=== PATIENT | male | born 1950 | race African-American/Black ===

== ENCOUNTER 2019-08-09 14:25 | Emergency (ER) | payer MEDICAID, MEDICARE ==
[~2019-08-09] VITALS: Ht 195.6 cm; Wt 90.7 kg
[2019-08-09 14:40] VITALS: BP 105/73
--- NOTE | 2019-08-09 14:40 | NUR ---
ED Nurse Note: PT FROM HOME AND WALKED IN DUE TO PRODUCTIVE COUGHING AND SOB X 2 WEEKS. STATES DIFFICULTY WHEN LAYING FLAT. DENIES NIGHT SWEATS. AAO X4, AMBULATORY WITH NOTED SOB AT REST. LUNGS TIGHT UPON AUSCULTATION.
--- NOTE | 2019-08-09 15:00 | NUR ---
ED Nurse Note: RT on bedside. Established IV site on RT AC with 20G, obtained blood specimen, sent to labs. Maintained pt on high fowlers, VSS, no signs of any respiratory distress. Will continue to monitor.
[2019-08-09] MEDS: Ipratropium 0.02% Inh Soln 2.5ml UD HHN SCH (15:09)
[2019-08-09] MEDS: Albuterol ud Inhalation HHN SCH (15:09)
[2019-08-09 15:34] LABS: BASOPHILS % (AUTO) 1.3 % (0.0-2.0); EOSINOPHILS % (AUTO) 1.9 % (0.0-3.0); HEMATOCRIT 40.4 % (42.0-52.0); HEMOGLOBIN 13.3 G/DL (14.2-18.0); LYMPHOCYTES % (AUTO) 31.6 % (20.0-45.0); MEAN CORPUSCULAR VOLUME 89 FL (80-99); MONOCYTES % (AUTO) 12.1 % (1.0-10.0); NEUTROPHILS % (AUTO) 53.1 % (45.0-75.0); PLATELET COUNT 198 K/UL (150-450); RED BLOOD COUNT 4.54 M/UL (4.70-6.10); RED CELL DISTRIBUTION WIDTH 13.3 % (11.6-14.8); WHITE BLOOD COUNT 5.2 K/UL (4.8-10.8)
[2019-08-09 15:54] LABS: ANION GAP 5 mmol/L (5-15); BLOOD UREA NITROGEN 11 mg/dL (7-18); CALCIUM 9.8 MG/DL (8.5-10.1); CARBON DIOXIDE 29 MMOL/L (21-32); CHLORIDE 102 MMOL/L (98-107); CREATININE 0.9 MG/DL (0.55-1.30); POTASSIUM 3.8 MMOL/L (3.5-5.1); SODIUM 136 MMOL/L (136-145)
[2019-08-09 16:05] LABS: ALANINE AMINOTRANSFERASE 14 U/L (12-78); ALBUMIN 3.3 G/DL (3.4-5.0); ALBUMIN/GLOBULIN RATIO 0.7 (1.0-2.7); ALKALINE PHOSPHATASE 68 U/L (46-116); ASPARTATE AMINO TRANSFERASE 29 U/L (15-37); BILIRUBIN,TOTAL 0.6 MG/DL (0.2-1.0)
[2019-08-09 16:29] VITALS: BP 122/65
--- NOTE | 2019-08-09 16:40 | NUR ---
ED Nurse Note: ERMD on bedside.
[2019-08-09 16:44] LABS: APPEARANCE,URINE CLEAR; BILIRUBIN, URINE NEGATIVE (NEGATIVE); COLOR,URINE YELLOW; GLUCOSE, URINE (UA) NEGATIVE (NEGATIVE); KETONES,URINE NEGATIVE (NEGATIVE); LEUKOCYTE ESTERASE ,URINE NEGATIVE (NEGATIVE); NITRITE,URINE NEGATIVE (NEGATIVE); PH,URINE 5 (4.5-8.0); PROTEIN,URINE 1+ (NEGATIVE); UROBILINOGEN,URINE NORMAL MG/DL (0.0-1.0)
[2019-08-09] MEDS ORDERED: Omnipaue 350mg/ml 100ml vial INJ PRN (17:00)
--- NOTE | 2019-08-09 17:01 | Diagnostic Imaging Report ---
Indication: Chest pain, shortness of breath Technique: XRAY Chest 1v Comparison: None Findings: There is abnormal prominence of upper mediastinum which is concerning for aneurysmal dilatation of the thoracic aorta, mass and/or lymphadenopathy. Recommend further evaluation with CT of the chest with contrast. There are patchy opacities in the bilateral bases and a small left pleural effusion. No evidence of pneumothorax. Degenerative changes noted in the spine. No acute osseous abnormality. Impression: * Abnormal prominence/widening of upper mediastinum which is concerning for aneurysmal dilatation of the thoracic aorta, mass and/or lymphadenopathy. Recommend further evaluation with CT of the chest with contrast, especially if there is clinical concern for acute aortic pathology. * Small left pleural effusion and patchy bibasilar airspace opacities which may related to subsegmental atelectasis. Pneumonia needs to be excluded clinically.
--- NOTE | 2019-08-09 17:04 | NUR ---
ED Nurse Note: Pt went for CT via wheelchair.
--- NOTE | 2019-08-09 17:20 | NUR ---
ED Nurse Note: Pt returned from CT via wheelchair on stable condition.
[2019-08-09] MEDS ORDERED: PREDNISONE20 MG ORAL (18:18)
[2019-08-09] MEDS ORDERED: COMP-AIR NEBUL1 EACH MC (18:18)
[2019-08-09] MEDS ORDERED: ALBUTEROL2.5 MG/3 M HHN (18:18)
[2019-08-09] MEDS ORDERED: PROMETHAZINE-C118 M1 ORAL (18:18)
[2019-08-09] MEDS ORDERED: AMOXICILLIN500 MG ORAL (18:18)
[2019-08-09] MEDS ORDERED: ALBUTEROL SULF8.5 GM INH (18:18)
--- NOTE | 2019-08-09 18:21 | NUR ---
ED Nurse Note: Pt's HR goes between 45-48 bpm, ERMD aware with no new orders given at this time.
[2019-08-09 18:22] VITALS: BP 104/57
[2019-08-09 18:35] VITALS: BP 92/75
--- NOTE | 2019-08-09 18:35 | NUR ---
ER DISCHARGE NOTE: Pt. is cleared to be discharged per ERMD, pt is aox4, on room air, with stable vital signs. pt was given dc and prescription instructions, pt was able to verbalize understanding, pt id band and iv site removed without complications. pt is able to ambulate with steady gait. pt took all belongings, pt left ED with family member.
--- NOTE | 2019-08-09 18:37 | Emergency Room Report ---
History of Present Illness General Chief Complaint: Dyspnea/Respdistress Source: Patient Present Illness HPI 69-year-old male presents ED for evaluation. Complaining of shortness of breath. States he is got a dry cough for the last 2 weeks. States he feels short of breath. Denies fevers or chills. Denies chest pain. States he smokes every day. Smokes 3 cigarettes today. Denies sick contacts or recent travel. No other aggravating relieving factors. Denies any other associated symptoms Allergies: Coded Allergies: No Known Allergies (Unverified , 08/09/19) Patient History Past Medical History: COPD Past Surgical History: none Pertinent Family History: none Social History: Reports: smoking; Denies: alcohol use, drug use Immunizations: UTD Reviewed Nursing Documentation: PMH: Agreed; PSxH: Agreed Nursing Documentation-PMH Hx Cardiac Problems: No - HIV positive Review of Systems All Other Systems: negative except mentioned in HPI Physical Exam Vital Signs Date Time Temp Pulse Resp B/P (MAP) Pulse Ox O2 Delivery O2 Flow Rate FiO2 08/09/19 14:30 97.9 107 24 98/70 (79) 96 Room Air 08/09/19 15:07 21 Sp02 EP Interpretation: reviewed, normal General Appearance: no apparent distress, alert, GCS 15, non-toxic Head: normocephalic, atraumatic Eyes: bilateral eye normal inspection, bilateral eye PERRL ENT: hearing grossly normal, normal pharynx, no angioedema, normal voice Neck: full range of motion, supple/symm/no masses Respiratory: chest non-tender, decreased breath sounds, speaking full sentences , wheezing Cardiovascular #1: no edema, tachycardia Cardiovascular #2: 2+ carotid (R), 2+ carotid (L), 2+ radial (R), 2+ radial (L) , 2+ dorsalis pedis (R), 2+ dorsalis pedis (L) Gastrointestinal: normal bowel sounds, non tender, soft, non-distended, no guarding, no rebound Rectal: deferred Genitourinary: normal inspection, no CVA tenderness Musculoskeletal: back normal, normal range of motion, gait/station normal, non- tender Neurologic: alert, motor strength/tone normal, oriented x3, sensory intact, responsive, speech normal Psychiatric: judgement/insight normal, memory normal, mood/affect normal, no suicidal/homicidal ideation Reflexes: 3+ bicep (R), 3+ bicep (L), 3+ tricep (R), 3+ tricep (L), 3+ knee (R) , 3+ knee (L) Skin: no rash Lymphatic: no adenopathy Medical Decision Making Diagnostic Impression: Primary Impression: Lung mass Additional Impression: COPD (chronic obstructive pulmonary disease) Qualified Codes: J44.9 - Chronic obstructive pulmonary disease, unspecified ER Course Hospital Course 69 yo M presents to ED c/o sob, cough x 2 weeks Differential diagnoses include: URI, bronchitis, asthma/COPD, pneumonia Clinical course Patient placed on stretcher. After initial history, physical exam reveals an elderly male in no acute distress. Bilateral TM unremarkable. No pharyngeal erythema. No tonsillar exudates. No lymphadenopathy. lungs clear. I ordered labs, IV fluids, nebs, chest x-ray. Labs reviewed- no leukocytosis, hemoglobin/hematocrit stable, electrolytes okay , trop negative EKG - sinus tachycardia no acute ichemic changes interpreted by me Chest x-ray shows widened mediastinum. concerning for aneurysm versus mass CTA ordered CTA shows numerous nodular masses within the superior and anterior mediastinum concerning for mery metastatic disease no signs of dissection or aneurysm I discussed these findings with the patient. Given history of smoking there is concern for lung cancer. Patient and at bedside understand. Patient states he is feeling better. Will discharge to home with prescription for an inhaler, steroids, cough medication, antibiotics. Given copy of CT report. Patient states he will follow-up with his PMD. States he is currently scheduled to see a behavioral services tech. I will also provide pulmonary referrals. Diagnosis - lung mass, COPD Stable and discharged home with prescriptions for albuterol, prednisone, promethazine, amoxicillin. Instructed to followup with PMD. Return to ED if symptoms recur or worsen Labs Test 08/09/19 14:55 08/09/19 16:00 White Blood Count 5.2 K/UL (4.8-10.8) Red Blood Count 4.54 M/UL (4.70-6.10) Hemoglobin 13.3 G/DL (14.2-18.0) Hematocrit 40.4 % (42.0-52.0) Mean Corpuscular Volume 89 FL (80-99) Mean Corpuscular Hemoglobin 29.2 PG (27.0-31.0) Mean Corpuscular Hemoglobin Concent 32.9 G/DL (32.0-36.0) Red Cell Distribution Width 13.3 % (11.6-14.8) Platelet Count 198 K/UL (150-450) Mean Platelet Volume 5.3 FL (6.5-10.1) Neutrophils (%) (Auto) 53.1 % (45.0-75.0) Lymphocytes (%) (Auto) 31.6 % (20.0-45.0) Monocytes (%) (Auto) 12.1 % (1.0-10.0) Eosinophils (%) (Auto) 1.9 % (0.0-3.0) Basophils (%) (Auto) 1.3 % (0.0-2.0) Sodium Level 136 MMOL/L (136-145) Potassium Level 3.8 MMOL/L (3.5-5.1) Chloride Level 102 MMOL/L (98-107) Carbon Dioxide Level 29 MMOL/L (21-32) Anion Gap 5 mmol/L (5-15) Blood Urea Nitrogen 11 mg/dL (7-18) Creatinine 0.9 MG/DL (0.55-1.30) Estimat Glomerular Filtration Rate mL/min (>60) Glucose Level 82 MG/DL (74-106) Calcium Level 9.8 MG/DL (8.5-10.1) Total Bilirubin 0.6 MG/DL (0.2-1.0) Aspartate Amino Transf (AST/SGOT) 29 U/L (15-37) Alanine Aminotransferase (ALT/SGPT) 14 U/L (12-78) Alkaline Phosphatase 68 U/L (46-116) Troponin I 0.000 ng/mL (0.000-0.056) Pro-B-Type Natriuretic Peptide 134 pg/mL (0-125) Total Protein 8.0 G/DL (6.4-8.2) Albumin 3.3 G/DL (3.4-5.0) Globulin 4.7 g/dL Albumin/Globulin Ratio 0.7 (1.0-2.7) Urine Color Yellow Urine Appearance Clear Urine pH 5 (4.5-8.0) Urine Specific [place] 1.010 (1.005-1.035) Urine Protein 1+ (NEGATIVE) Urine Glucose (UA) Negative (NEGATIVE) Urine Ketones Negative (NEGATIVE) Urine Blood Negative (NEGATIVE) Urine Nitrite Negative (NEGATIVE) Urine Bilirubin Negative (NEGATIVE) Urine Urobilinogen Normal MG/DL (0.0-1.0) Urine Leukocyte Esterase Negative (NEGATIVE) Urine RBC 0-2 /HPF (0 - 0) Urine WBC 0-2 /HPF (0 - 0) Urine Squamous Epithelial Cells Few /LPF (NONE/OCC) Urine Bacteria Occasional /HPF (NONE) EKG Diagnostic Results Rate: tachycardiac Rhythm: NSR ST Segments: no acute changes ASA given to the pt in ED: No Rhythm Strip Diag. Results EP Interpretation: yes Rhythm: NSR, no PVC's, no ectopy Chest X-Ray Diagnostic Results Chest X-Ray Diagnostic Results : Chest X-Ray Ordered: Yes # of Views/Limited/Complete: 1 View Indication: Shortness of Breath EP Interpretation: Yes Interpretation: no consolidation, no pneumothorax, other - widened mediastinum Impression: Other - widened mediastinum Electronically Signed by: Electronically signed by Dylan Restrepo MD CT/MRI/US Diagnostic Results CT/MRI/US Diagnostic Results : Imaging Test Ordered: CTA Chest Impression Enlarged thyroid gland suggesting goiter. Numerous enlarged low-density nodular masses within the superior and anterior mediastinum are concerning for mery metastatic disease, a lymphoproliferative process and less likely reactive process due to infection. These masses insinuate the large vessels of the mediastinum and bronchi. No evidence of pulmonary embolus. No thoracic aortic dissection or aneurysm. Small to moderate left pleural effusion with adjacent atelectasis. Centrilobular and paraseptal emphysema. Heart and pericardium unremarkable. Upper abdomen is unremarkable. No acute osseous abnormality. Last Vital Signs Date Time Temp Pulse Resp B/P (MAP) Pulse Ox O2 Delivery O2 Flow Rate FiO2 08/09/19 16:29 98.5 117 37 122/65 99 Room Air 08/09/19 15:07 21 Status: improved Disposition: HOME, SELF-CARE Condition: Stable Scripts Nebulizer/Compressor (COMP-AIR NEBULIZER SYSTEM) 1 Each Each EACH , #1 Prov: Dylan Restrepo MD 08/09/19 Amoxicillin* (AMOXIL*) 500 Mg Capsule 500 MG ORAL THREE TIMES A DAY, #21 CAP Prov: Dylan Restrepo MD 08/09/19 Codeine/Promethazine Hcl* (PROMETHAZINE-CODEINE SYRUP*) 118 Ml Syrup 5 ML ORAL Q6H PRN for For Cough, #118 ML 0 Refills Prov: Dylan Restrepo MD 08/09/19 Prednisone* (PREDNISONE*) 20 Mg Tablet 40 MG ORAL DAILY, #10 TAB Prov: Dylan Restrepo MD 08/09/19 Albuterol Sulfate* (ALBUTEROL SULFATE HHN*) 2.5 Mg/3 Ml Vial.neb 2.5 MG HHN Q4H PRN for Shortness of Breath, #25 VIAL Prov: Dylan Restrepo MD 08/09/19 Albuterol Sulfate* (ALBUTEROL SULFATE MDI*) 8.5 Gm Hfa.aer.ad 2 PUFF INH Q4H PRN for cough/wheezing, #1 EA 0 Refills Prov: Dylan Restrepo MD 08/09/19 Referrals: NON PHYSICIAN (PCP) Tin Levine MD, Michael J. MD Patient Instructions: Chronic Obstructive Pulmonary Disease Exacerbation, Lung Cancer Dylan Restrepo MD Aug 09, 2019 18:37
--- NOTE | 2019-08-10 17:41 | Diagnostic Imaging Report ---
ndication: Cough, shortness of breath Technique: IV administration nonionic contrast. Spiral acquisitions obtained from the lung bases to the lung apices. Multiplanar and 3-D reconstructions were generated. Total dose length product 876 mGycm. CTDIvol(s) 33, 35, 34, 18 mGy. Dose reduction achieved using automated exposure control Comparison: none Findings: There is good quality opacification of the pulmonary arteries. No intraluminal filling defects or other findings to suggest acute pulmonary embolus demonstrated. Normal caliber pulmonary arteries. No evidence of right ventricular dilatation. No evidence of thoracic aortic aneurysm or dissection. There is narrowing of the right innominate vein and upstream superior vena cava due to lymphadenopathy. Normal caliber and branching anatomy of the great neck vessels. There are bilateral apical and upper lobe bullae and subpleural blebs. There is a small left pleural effusion. There is compressive atelectasis of a portion of the left lower lobe. There is a somewhat irregular 5 mm nodule in the left upper lobe, image 45 of series 4 There is extensive and massive confluent mediastinal and bilateral hilar lymphadenopathy. This results in marked widening of the mediastinum, particularly the upper mediastinum. It results in rightward displacement and mild narrowing of the trachea. Nodes appear to be necrotic with rim enhancement. There is what appears to be a markedly enlarged heterogeneous thyroid. This is slightly higher in attenuation than the lymphadenopathy. The heart size is normal. No pericardial effusion. The bones demonstrate degenerative spondylosis changes The included upper abdominal anatomy demonstrates questionable peripancreatic lymphadenopathy. Impression: Negative for evidence of acute pulmonary embolus or other acute thoracic vascular pathology Massive confluent lymphadenopathy. Apparent massively enlarged heterogeneous thyroid with multiple masses. Uncertain as to whether this represents a separate process or is part of the mediastinal process Small left pleural effusion. Adjacent atelectasis Upper lobe bullous changes This agrees with the preliminary interpretation provided overnight by [facility] teleradiology service. The CT scanner at [facility] is accredited by the [employer] and the scans are performed using protocols designed to limit radiation exposure to as low as reasonably achievable to attain images of sufficient resolution adequate for diagnostic evaluation.
== END 2019-08-09 18:35 | disposition home or self-care (01) ==
LOC: EMR 14:55
DX: J44.9 Chronic obstructive pulmonary disease, unspecified (principal); R91.8 Other nonspecific abnormal finding of lung field; B20 Human immunodeficiency virus [HIV] disease; F17.210 Nicotine dependence, cigarettes, uncomplicated; R00.0 Tachycardia, unspecified
CPT/HCPCS: 36415; 71045; 71275; 80053; 81003; 83880; 84484; 85025; 86710; 93005; 99284; Q9967